=== PATIENT | female | born 1995 | race Asian ===

== ENCOUNTER 2023-07-25 00:24 | Emergency (ER) | payer BC ==
[~2023-07-25] VITALS: Ht 165.1 cm; Wt 63.5 kg
[2023-07-25 01:14] VITALS: BP_SYST 118; PULSE 62; RESP 20; TEMP 97; O2SAT 99
[2023-07-25] MEDS ORDERED: IBUP-1969 PO (02:27)
[2023-07-25 03:21] VITALS: BP_SYST 118; PULSE 62; RESP 20; TEMP 97; O2SAT 99
== END 2023-07-25 03:15 | disposition home or self-care (01) ==
LOC: SED 00:24
DX: S43.401A Unspecified sprain of right shoulder joint, initial encounter (principal); Z79.899 Other long term (current) drug therapy; X50.0XXA Overexertion from strenuous movement or load, initial encounter; Y93.89 Activity, other specified; Y92.89 Other specified places as the place of occurrence of the external cause; Y99.8 Other external cause status
CPT/HCPCS: 73030; 81025; 99283